=== PATIENT | male | born 1960 | race Caucasian/White ===

== ENCOUNTER 2016-10-28 10:00 | Inpatient (IN) | payer BC ==
[~2016-10-28] VITALS: Ht 38.1 cm; Wt 75.7 kg
--- NOTE | ~2016-10-28 | DS ---
PATIENT'S NAME: KATLYN GREY [facility] AGE: 56 Y [address] ROOM: [place] [address] LOCATION: [facility] ADMIT DATE: 11/10/2016 Discharge Summary DISCHARGE DATE: 11/12/2016 FAMILY PHYSICIAN: Lamonte Grey MD ATTENDING PHYSICIAN: Gretel Storey PRIMARY DIAGNOSIS: Degenerative joint disease of the right knee. SECONDARY DIAGNOSES: 1. Hypertension. 2. Chronic airway obstruction. 3. Dyslipidemia. 4. Gastroesophageal reflux disease. 5. History of anxiety. 6. History of postop urine retention with gross hematuria. PROCEDURE PERFORMED: Right total knee arthroplasty. HISTORY: The patient is a 55-year-old male, who presents with advanced right knee degenerative joint disease and associated severely compromised activities of daily living. The patient has decided to proceed with total knee arthroplasty after having been thoroughly counseled regarding the risks, benefits, limitations and alternatives. Please refer to the outpatient clinic notes and admission history and physical for this patient. HOSPITAL COURSE: The patient underwent a right total knee arthroplasty on 11/10/2016 without complications. Spinal anesthesia plus adductor canal block plus periarticular local anesthesia was utilized. The patient received 24 hours of perioperative prophylactic antibiotics and remained hemodynamically stable, neurovascularly intact throughout the entire hospital course. The postoperative prophylactic deep venous thrombosis prophylaxis consisted of Xarelto, early mobilization and pneumatic compression devices. Daily physical therapy for gait training, transfer training range of motion and quadriceps isometric exercises were received. The patient progressed well in physical therapy. On the date of discharge, 11/12/2016, the incision at the knee was healing well and showed no signs of infection. DISPOSITION: Home. DISCHARGE ACTIVITY: The patient is to bear weight as tolerated with range of motion and quadriceps isometric exercises as instructed. The operative extremity is to be elevated at least 90% of the day. There is to be sterile 4x4 gauze dressings to the incision daily. Dr. Storey is to be notified immediately if there is any increased pain, fevers, chills erythema or drainage. PATIENT'S NAME: KATLYN GREY [facility] AGE: 56 Y [address] ROOM: [place] [address] LOCATION: [facility] ADMIT DATE: 11/10/2016 Discharge Summary DISCHARGE DATE: 11/12/2016 FAMILY PHYSICIAN: Lamonte Grey MD ATTENDING PHYSICIAN: Gretel Storey DISCHARGE MEDICATIONS: 1. Xarelto 10 mg 1 tab p.o. daily for 12 days for postoperative DVT prophylaxis. 2. Hydromorphone 2 mg 1 to 2 tabs p.o. every 4 hours p.r.n. for pain. 3. Diazepam 1/2 to 1 tab p.o. every 6 hours p.r.n. for muscle spasms. 4. Celebrex 200 mg 1 tab p.o. b.i.d. for 7 days for pain. 5. He was then instructed to continue all his other preadmission medications as instructed by his internal medicine doctor. FOLLOWUP: Followup appointment is to be with Dr. Storey's office on 11/17/2016 for his initial postoperative evaluation. NEFTALY GRIFFITH PA-C FOR GRETEL STOREY MD SMW/modl /[id number] d: 11/17/162047 t: 11/20/16 0923, DISCHARGE SUMMARY
--- NOTE | ~2016-10-28 | OR ---
PATIENT'S NAME: BART GREY [facility] AGE: 55 Y [address] ROOM: [address] [address] LOCATION: [facility] ADMIT DATE: 11/10/2016 OR/Procedure Report DISCHARGE DATE: FAMILY PHYSICIAN: Lamonet Grey MD ATTENDING PHYSICIAN: GRETEL STOREY SURGEON: Gretel Storey MD GUARD SERGEANT: Blake Miller PA-C and Casey Carrington CST/GEOTHERMAL PRODUCTION MANAGER. DATE OF PROCEDURE: 11/10/2016 PRE-OP DIAGNOSIS: Degenerative joint disease right knee. POST-OP DIAGNOSIS: Degenerative joint disease right knee. OPERATION: Right total knee arthroplasty with computer navigation. ANESTHESIA: Spinal anesthesia plus adductor canal block plus periarticular local anesthesia (ropivacaine with epinephrine and Toradol). ESTIMATED BLOOD LOSS: Less than 10 mL. DRAIN: None. SPECIMEN: None. COMPLICATIONS: None. IMPLANT SYSTEM: Grace Triathlon Size 5 right posterior stabilized femoral component Size 4 Talpa Modular tibial base plate An 11-mm posterior-stabilized size 4 X3 tibial polyethylene insert A 32-mm oval X3 patellar component (triple pegged). INDICATIONS FOR SURGERY: Mr. Bart Grey is a 55-year-old male, who presents with advanced right knee degenerative joint disease and associated severely compromised activities of daily living. The patient has decided to proceed with knee replacement after having been thoroughly counseled regarding the associated risks, benefits, and limitations. We have specifically reviewed the risks and implications of infection, deep venous thrombosis, pulmonary embolism, mortality, neurovascular complications, blood transfusion (and associated potential for disease transmission or transfusion reaction), stiffness, instability, mechanical deterioration of the components (due to wear and or loosening), and the potential need for revision. We have also emphasized the importance of active involvement and compliance with post- operative physical therapy as a means of optimizing range of motion and PATIENT'S NAME: BART GREY [facility] AGE: 55 Y [address] ROOM: [address] [address] LOCATION: [facility] ADMIT DATE: 11/10/2016 OR/Procedure Report DISCHARGE DATE: FAMILY PHYSICIAN: Lamonte Grey MD ATTENDING PHYSICIAN: GRETEL STOREY functional recovery. Informed consent has been granted. Of note, the patient has given informed consent to receive either a medial compartment unicompartmental arthroplasty versus a total knee arthroplasty. However, in the preoperative holding area, the patient has expressed a preference to proceed with total knee arthroplasty unless circumstances are ideal for a medial compartment unicompartmental arthroplasty. He has expressed concern that he has been experiencing progressive anterior knee pain over the past several weeks, and his overall discomfort has been progressing as well. DESCRIPTION OF PROCEDURE: The patient was positioned supine after administration of anesthesia and prophylactic antibiotics. A well-padded pneumatic tourniquet was placed around the right proximal thigh, and the right lower extremity was prepped and draped with vigilant sterile technique. The patient's name as well as the intended operative side and procedure were confirmed with a verbal time-out involving myself, the circulating nurse, the scrub nurse, and the anesthesiologist. Examination under anesthesia demonstrated no active skin lesions or masses. There was a large effusion. There was no erythema. There was no abnormal warmth. There was no deformity. Range of motion under anesthesia was from full extension to 135 degrees of flexion. There was no ligamentous insufficiency. The right lower extremity was elevated and exsanguinated with an Esmarch wrap, and the pneumatic tourniquet was inflated to 300mmHg. The knee was approached through a longitudinal midline incision. A medial parapatellar arthrotomy was performed and the patella was everted. Examination of the joint space demonstrated a large amount of benign-appearing translucent synovial fluid. There was a 5 mm loose body in the lateral gutter. The effusion consisted of benign-appearing translucent synovial fluid. The cruciate ligaments were intact. There was a 6-mm diameter region of partial-thickness articular cartilage loss at the medial aspect of the lateral femoral condyle. There was a radial tear at the 2 o'clock position of the medial meniscus. The lateral meniscus was intact. There was a 1 cm diameter region of moderate grade 3 chondromalacia at the medial half of the lateral tibial plateau. There was a very small osteophyte at the anterior aspect of the lateral tibial plateau. There was a very small osteophyte at the lateral femoral condyle. They were intermixed grade 3 and grade 4 degenerative changes throughout the majority of the medial femoral condyle and the medial half of the medial tibial plateau. There were mild grade 3 degenerative changes at the femoral trochlea. There was a 3-mm wide band of full-thickness articular cartilage loss at the inferior half of the patella. There was high-grade partial-thickness PATIENT'S NAME: BART GREY [facility] AGE: 55 Y [address] ROOM: [id number] [place], [place] [address] LOCATION: [facility] ADMIT DATE: 11/10/2016 OR/Procedure Report DISCHARGE DATE: FAMILY PHYSICIAN: Lamonte Grey MD ATTENDING PHYSICIAN: GRETEL STOREY articular cartilage loss and deep fissuring involving the central 2 cm of the patella. Remnants of the menisci and cruciate ligaments were excised. The [employer] computer navigation femoral tracker was pinned in place at the distal aspect of the femoral trochlea. Absence of motion between the femur and the tracking device was confirmed manually and visually. Femoral osseous landmarks were obtained in order to calibrate the computer navigation system. Landmarks included the center of rotation of the ipsilateral hip, the center-point of the distal femur, the femoral AP axis, 57 points on the medial femoral condyle articular surface, and 57 points on the lateral femoral condyle articular surface. The [employer] computer navigation system was subsequently utilized to position the distal femoral resection block such that the distal femoral resection was performed perfectly perpendicular to the femoral mechanical axis. The distal femoral resection was performed with a Digital Trowel Precision oscillating saw. The [employer] computer navigation tibial tracker was pinned in place at the anterior aspect of the tibial plateau. Absence of motion between the tibia and the tracking device was confirmed manually and visually. Tibial osseous landmarks were obtained in order to calibrate the computer navigation system. Landmarks included the center-point of the tibial plateau, the AP tibial axis, 57 points on the medial tibial plateau articular surface, 57 points on the lateral tibial plateau articular surface, the medial malleolus, and the lateral malleolus. The [employer] computer navigation system was subsequently utilized to position the proximal tibial resection block such that the proximal tibial resection was performed perfectly perpendicular to the tibial mechanical axis. The proximal tibial resection was performed with a Digital Trowel Precision oscillating saw. Perpendicularity of the tibial resection with respect to the tibial shaft axis was reconfirmed by inserting a spacer- block attached to an extramedullary guide arjun. External rotation of the anterior and posterior femoral resections was set parallel to the epicondylar axis and carefully adjusted in order to create a rectangular flexion gap. The box resection was performed with a reciprocating saw. Anterior and posterior chamfer resections were performed with the oscillating saw. Posterior condyle osteophytes were excised with an osteotome. All other osteophytes were excised with a rongeur. Resection of all remnants of the menisci was reconfirmed. Flexion and extension gaps were confirmed to be symmetric and well balanced with a spacer-block technique. The patella resection was performed with an oscillating saw such that the composite thickness of the reconstructed patella was equivalent to the thickness of the [place] patella. Patella tracking was confirmed to be optimal. There was no need for a lateral retinacular release. PATIENT'S NAME: BART GREY [facility] AGE: 55 Y [address] ROOM: [address] [address] LOCATION: [facility] ADMIT DATE: 11/10/2016 OR/Procedure Report DISCHARGE DATE: FAMILY PHYSICIAN: Lamonte Grey MD ATTENDING PHYSICIAN: GRETEL STOREY All trial components were removed and all prepared osseous surfaces were thoroughly irrigated with pulsatile saline lavage and dried prior to cementing all three components in a single stage using Digital Trowel Simplex cement containing pre-mixed tobramycin. All extruded excess cement was removed. The entire joint space was thoroughly inspected and thoroughly irrigated with bacteriostatic pulsatile saline lavage to assure that there was no residual debris of any sort. Final range of motion was from a full extension (with no passive hyperextension) degrees of extension to 130 degrees of flexion. Patella tracking was reconfirmed to be optimal. There was excellent anteroposterior stability at 90 degrees of flexion. There was less than 1 mm of medial lift- off to valgus stress in full extension. There was less than 1 mm of lateral lift-off to varus stress in full extension. The arthrotomy was closed with multiple simple and [id number] interrupted #1 Vicryl. Subcutaneous tissues were thoroughly re-irrigated with bacteriostatic pulsatile saline lavage. Subcutaneous tissues were re- approximated with simple buried interrupted #0 Vicryl sutures. The skin was closed with simple buried interrupted 2-0 Vicryl sutures followed by surgical anne. The dressing consisted of Xeroform gauze, 4x4 gauze, ABD pads and two 6-inch Gerardo Wraps. There were no intra-operative complications. It should be noted that the physician's child nutrition assistant played an active, integral role throughout this entire operation. By providing expert retraction, they greatly facilitated and expedited safe and effective exposure of the distal femur, proximal tibia and patella for preparation and implantation of the components. They were also actively involved in the patient's positioning, prepping and draping, as well as wound closure. MD RYAN HONG/mehul /[id number] d: 11/10/16 2351 t: 11/21/16 0751, OPERATIVE SUMMARY
[~2016-10-28 10:00] MED LIST: ADVIL200 MG PO; ASPIRIN EC81 MG PO; ATIVAN 0.5MG0.5 MG PO; LIPITOR20 M1 PO; NEXIUM40 MG PO; NORVASC5 MG PO; TYLENOL EXTRA500 MG PO
--- NOTE | 2016-11-10 14:23 | NUR ---
Significant Event:Patient arrived from PACU at 1145. AOx3. VSS. Acewrap dressing is C/D/I. Straight cath at 1300, 1200ml out. Up with 1 assist with walker. Dilaudid given for pain. Follow up:
--- NOTE | 2016-11-11 03:55 | NUR ---
Shift Summary: Patient can ambulate with standby assist/walker. Was straight cathed on day shift. Patient voided small amount bloody urine with clots. Bladder scan showed 800ml after void. Solano inserted. Patient had bloody urine most of shift, no clots. Urine now clear yellow. Patient had difficult pain control early in the shift. Now having good pain control with one dilaudid tab q 2hr. Last one at 0308. 2nd dose of Toradol 2207, Dilaudid IV 2046, Valium 0046. Patient tolerating regular diet well.
--- NOTE | 2016-11-11 12:11 | NUR ---
SPOKE TO PATIENT REGARDING CM AND OUR ROLE. HIS DAUGHTER IS AT THE BEDSIDE. PATIENT IS PLANNING ON RETURNING HOME WITH HELP FROM FAMILY. HE REPORTS THAT HE HAS ALL HIS DME. HE ANTICIPATES THAT HE WILL DISCHARGE HOME TOMORROW. CM WILL FOLLOW NEEDED.
--- NOTE | 2016-11-11 16:32 | NUR ---
Significant Event: Ambulates with SBA and walker. Dressing C/D/I. Ez wrap ice at all times. CSM WNL. Solano patent, with clear yellow urine. Dilaudid 2mg last at 1538. Plans to dismiss home tomorrow. Follow up:
--- NOTE | 2016-11-12 03:34 | NUR ---
Significant Event: Alert/oriented x3. Plans to go home today. Ice and EZ wrap applied. VSS. CSM WNL. Room air. Solano removed at 1999, voided QS since using urinal. 1 assist ambulation with walker and gait belt. Toradol 15 mg IVP at 2313; Valium 5 mg at 0113; Dilaudid 0.2 mg IVP at 2342, 0022; Dilaudid 2 mg po at 1931, 2310, 0113, 0235. Follow up:
[2016-11-12] MEDS ORDERED: COLACE100 MG PO (15:47)
[2016-11-12] MEDS ORDERED: MIRALAX17 GM PO (15:48)
[2016-11-12] MEDS ORDERED: XARELTO10 MG PO (15:49)
[2016-11-12] MEDS ORDERED: VALIUM5 MG PO (15:50)
[2016-11-12] MEDS ORDERED: DILAUDID 2MG(HYD2 MG PO (15:51)
[2016-11-12] MEDS ORDERED: CELEBREX200 MG PO (15:52)
--- NOTE | 2016-11-12 16:34 | NUR ---
Patient was AOx3. VSS. CSM WNL. Dressing C/D/I. Dilaudid given 2mg at 1600. Patient wheeled to [facility] for dismissal home with family at 1630.
== END 2016-11-12 16:30 | disposition disaster alternative care site (69) | DRG 470 ==
LOC: G3N 11-10 06:00
PROVIDERS: ADMIT Orthopaedic Surgery
PROC: XR2G021 Monitoring of Right Knee Joint using Intraoperative Knee Replacement Sensor, Open Approach, New Technology Group 1 (ICD-10-PCS; principal; 2016-11-10)
PROC: 0SRC0J9 Replacement of Right Knee Joint with Synthetic Substitute, Cemented, Open Approach (ICD-10-PCS; principal; 2016-11-10)
DX: M17.11 Unilateral primary osteoarthritis, right knee (principal); E88.89 Other specified metabolic disorders; F41.9 Anxiety disorder, unspecified; I10 Essential (primary) hypertension; J44.9 Chronic obstructive pulmonary disease, unspecified; K21.9 Gastro-esophageal reflux disease without esophagitis; N99.89 Other postprocedural complications and disorders of genitourinary system; R31.9 Hematuria, unspecified; R79.1 Abnormal coagulation profile
CPT/HCPCS: C1713; C1776; J0690; J1100; J1170; J1885; J2001; J2250; J2550; J2795; J7120

== ENCOUNTER → 2016-10-30 | Outpatient (CLI) | payer BC ==
[~2016-10-30] MED LIST changes: +CELEBREX200 MG PO; +COLACE100 MG PO; +DILAUDID 2MG(HYD2 MG PO; +MIRALAX17 GM PO; +VALIUM5 MG PO; +XARELTO10 MG PO
== END | disposition disaster alternative care site (69) ==
LOC: GRAD 09:46
DX: Z01.812 Encounter for preprocedural laboratory examination (principal); M17.11 Unilateral primary osteoarthritis, right knee; M25.561 Pain in right knee